=== PATIENT | male | born 1975 | race Caucasian/White ===

== ENCOUNTER 2020-11-25 09:55 | Emergency (ER) | payer OTHER ==
[~2020-11-25] VITALS: Ht 177.8 cm; Wt 113.4 kg
[~2020-11-25 09:55] MED LIST: CYCL10 PO; NAPR500EC PO; OXYACE5T PO; PARO30 PO
== END 2020-11-25 13:40 | disposition home or self-care (01) ==
LOC: ER 09:55
DX: S87.82XA Crushing injury of left lower leg, initial encounter (principal); S71.112A Laceration without foreign body, left thigh, initial encounter; S80.02XA Contusion of left knee, initial encounter; Z88.0 Allergy status to penicillin; Z79.899 Other long term (current) drug therapy; W17.89XA Other fall from one level to another, initial encounter
CPT/HCPCS: 73562-LT; 90471; 90714; 93971; 99283-25

== ENCOUNTER 2020-12-01 16:46 | Inpatient (IN) | payer OTHER ==
[~2020-12-01] VITALS: Ht 177.8 cm; Wt 120.4 kg
[2020-12-01 17:26] LABS: BASOPHILS ABSOLUTE AUTO 0.08 K/mm3 (0.00-0.23); BASOPHILS PERCENT AUTO 1 % (0-2); EOSINOPHILS PERCENT AUTO 3 % (0-6); Hematocrit 35.6 % (37.0-53.0); Hemoglobin 11.5 g/dL (13.5-17.5); IMMATURE GRAN ABSOLUTE AUTO 1.04 K/mm3 (0.00-0.10); IMMATURE GRAN PERCENT AUTO 8 % (0-1); LYMPHOCYTES ABSOLUTE AUTO 1.21 K/mm3 (0.84-5.20); LYMPHOCYTES PERCENT AUTO 9 % (21-46); MONOCYTES ABSOLUTE AUTO 1.06 K/mm3 (0.16-1.47); MONOCYTES PERCENT AUTO 8 % (4-13); Mean Corpuscular HGB 28.9 pg (26.0-34.0); Mean Corpuscular HGB Conc 32.3 g/dL (31.5-36.5); Mean Corpuscular Volume 89 fL (80-100); NEUTROPHILS ABSOLUTE AUTO 9.41 K/mm3 (1.96-9.15); NEUTROPHILS PERCENT AUTO 71 % (41-73); Platelet Count 352 K/mm3 (150-400); RDW Coefficient Variation 12.9 % (11.7-14.2); RDW Standard Deviation 42.8 fL (35.1-46.3); Red Blood Cell Count 3.98 M/mm3 (4.30-5.90)
[2020-12-01 17:57] LABS: Alanine Aminotransfer (ALT/SGP 31 U/L (12-78); Albumin, Blood 2.1 g/dL (3.4-5.0); Albumin/Globulin Ratio 0.4 (0.8-1.8); Alk Phos 119 U/L (50-136); Anion Gap 4 mmol/L (6-16); Aspartate Aminotrans (AST/SGOT 17 U/L (12-37); Bilirubin, Total 0.4 mg/dL (0.1-1.0); Blood Urea Nitrogen 15 mg/dL (8-24); Bun/Creatinine Ratio 24.2 (12.0-20.0); CO2, Blood 30 mmol/L (21-32); Calcium, Blood 9.4 mg/dL (8.5-10.1); Chloride, Blood 97 mmol/L (98-108); Creatinine, Blood 0.62 mg/dL (0.60-1.20); Glomerular Filtration Rate >60 (60-); Glucose, Blood 309 mg/dL (70-99); Sodium, Blood 131 mmol/L (136-145); Total Protein, Blood 7.1 g/dL (6.4-8.2)
[2020-12-01 17:58] LABS: C-REACTIVE PROTEIN, EXT RANGE >19.000 mg/dL (0.000-0.300)
[2020-12-01] MEDS ORDERED: BUSP10 PO ×2 (18:58→20:33)
[2020-12-01] MEDS ORDERED: FENO160 PO (18:58)
[2020-12-01] MEDS ORDERED: GLIP10ER PO (18:58)
[2020-12-01] MEDS ORDERED: CLONAZEPAM1 MG PO (18:59)
[2020-12-01] MEDS ORDERED: GLUCOPHAGE1000 M4 PO (18:59)
[2020-12-01] MEDS ORDERED: ATOR40TA PO (18:59)
[2020-12-01] MEDS ORDERED: LISI20 PO (19:00)
[2020-12-01] MEDS ORDERED: TIZA4 PO (19:00)
[2020-12-01] MEDS ORDERED: VENLAFAXINE HC225 MG PO (19:00)
[2020-12-01] MEDS ORDERED: Aspir 8181 MG PO (19:01)
[2020-12-01] MEDS ORDERED: DICL75ER PO (19:01)
[2020-12-01] MEDS ORDERED: OXYC5 PO (19:02)
[2020-12-01] MEDS ORDERED: VENL75ER PO (20:31)
[2020-12-01] MEDS ORDERED: EFFEXOR XR150 MG PO (20:31)
--- NOTE | 2020-12-01 22:19 | NUR ---
REPORT RECEIVED FROM EMMAED RN. PT TRANSPORTED TO MEDICAL FLOOR VIA GURNEY, AMBULATED SELF TO BED. AT THE BEDSIDE. VS TAKEN, ORIENTED TO ROOM/UNIT. MEDS GIVEN. CALL LIGHT, POSSESSIONS IN REACH, PT/ DENY FURTHER NEEDS AT THIS TIME. CONTINUE TO MONITOR.
--- NOTE | 2020-12-02 00:35 | NUR ---
SPOKE TO DR. EDWARDS REGARDING PT'S CONTINUED C/O LLE PAIN, AND INCREASED HR. ORDERS RECEIVED. CONTINUE TO MONITOR.
[2020-12-02 05:05] LABS: Hematocrit 35.4 % (37.0-53.0); Hemoglobin 11.3 g/dL (13.5-17.5); Mean Corpuscular HGB 28.8 pg (26.0-34.0); Mean Corpuscular HGB Conc 31.9 g/dL (31.5-36.5); Mean Corpuscular Volume 90 fL (80-100); Mean Platelet Volume 8.8 fL (9.1-12.4); NRBC ABSOLUTE 0.02 K/mm3 (0.00-0.02); NRBC Auto 0.1 /100 WBC (0.0-0.2); Platelet Count 344 K/mm3 (150-400); RDW Coefficient Variation 13.1 % (11.7-14.2); RDW Standard Deviation 43.5 fL (35.1-46.3); Red Blood Cell Count 3.92 M/mm3 (4.30-5.90); White Blood Cell Count 14.14 K/mm3 (4.00-11.30)
[2020-12-02 05:27] LABS: Alanine Aminotransfer (ALT/SGP 27 U/L (12-78); Albumin, Blood 2.4 g/dL (3.4-5.0); Albumin/Globulin Ratio 0.5 (0.8-1.8); Alk Phos 108 U/L (50-136); Anion Gap 7 mmol/L (6-16); Aspartate Aminotrans (AST/SGOT 10 U/L (12-37); Bilirubin, Total 0.5 mg/dL (0.1-1.0); Blood Urea Nitrogen 12 mg/dL (8-24); Bun/Creatinine Ratio 18.4 (12.0-20.0); CO2, Blood 27 mmol/L (21-32); Chloride, Blood 101 mmol/L (98-108); Creatinine, Blood 0.65 mg/dL (0.60-1.20); Globulin, Blood 4.6 g/dL (2.2-4.0); Glomerular Filtration Rate >60 (60-); Glucose, Blood 223 mg/dL (70-99); Potassium, Blood 3.9 mmol/L (3.5-5.5); Sodium, Blood 135 mmol/L (136-145)
[2020-12-02 05:41] LABS: BAND PERCENT MAN 6 % (0-8); BASOPHILS PERCENT MAN 0 % (0-2); EOSINOPHILS ABSOLUTE MAN 0.28 K/mm3 (0.00-0.68); EOSINOPHILS PERCENT MAN 2 % (0-6); LYMPHOCYTES ABSOLUTE MAN 1.83 K/mm3 (0.84-5.20); LYMPHOCYTES PERCENT MAN 13 % (21-46); METAMYELOCYTE ABSOLUTE MAN 0.28 K/mm3 (0.00-0.00); METAMYELOCYTE PERCENT MAN 2 % (0-0); MONOCYTES ABSOLUTE MAN 0.84 K/mm3 (0.16-1.47); MONOCYTES PERCENT MAN 6 % (4-13); NEUTROPHILS ABSOLUTE MAN 10.88 K/mm3 (1.96-9.15); SEG NEUTROPHILS PERCENT MAN 71 % (41-73); TOTAL CELLS COUNTED 100
--- NOTE | 2020-12-02 07:00 | NUR ---
SHIFT SUMMARY PT RESTING COMFORTABLY, NO ACUTE DISTRESS NOTED. VS REVIEWED, HR REMAINS TACHYCARDIC, BUT LOWER THAN PREVIOUS; AFEBRILE THIS AM. PT APPEARS TO BE FEELING SLIGHTLY BETTER THIS AM. PAIN MANAGED WITH MEDS PER EMAR. CONSULT CALLED INTO ORTHOPEDICS ANSWERING SERVICE PER ORDERS. PT AND DENY NEEDS AT THIS TIME. CALL LIGHT, POSSESSIONS IN REACH, BED IN LOW POSITION. REPORT GIVEN TO LUIS FISHER.
[2020-12-02 14:00] LABS: Influenza A, PCR Negative (NEGATIVE); Influenza B, PCR Negative (NEGATIVE); Resp Syncytial Virus, PCR Negative (NEGATIVE); SARS-Cov-2 (COVID-19) PCR, MMC Negative (NEGATIVE)
--- NOTE | 2020-12-02 14:46 | NUR ---
12/02/20 1446 PapSancho mccann PT ON SCHEDULED ANTIBIOTICS AND RECIEVED PRIOR TO ARRIVAL TO OR.
--- NOTE | 2020-12-02 17:10 | NUR ---
AFTER GIVING REPORT TO MEDICAL FLOOR RN THE PT 2ND WOUND VAC CLOTTED AND STOPPED FUNCTIONING. A CALL OUT AND TEXT MESSAGE LEFT ON MICK'S CELL PHONE. AFTER NO RESPONSE I CHANGED THE WOUND VAC DRSG PER WOUND VAC PROCEDURE PROTOCOL. 2ND WOUND VAC SET TO 120mmhg SUCTION AND FUNCTIONING WELL. PT THEN TRANSFERRED BACK TO MEDICAL FLOOR.
--- NOTE | 2020-12-02 17:56 | NUR ---
PT AOX4 AND COOPERATIVE OF CARE. PT WAS ABLE TO GO TO HAVE ABCESSES OPENED UP IN L LEG BY DR ABARCA. PT ARRIVED BACK AT 1500. WOUND VACS IN PLACE RUNNNING ONLY ONE IS SUCTIONING PROPERLY. UNABLE TO GET ONE TO SUCTION. CALL PLACED TO DR ABARCA ANSWERING SERVICE. PER SURGERY THEY ALREADY HAD TO COMPLETELY CHANGE THIS WOUND VAC DRESSING OUT DOWN STAIRS. WILL WAIT FOR RESPONSE. PT IS AOX4 AND EATING DINNER. WILL CONTINUE TO MONITOR.
--- NOTE | 2020-12-03 04:33 | NUR ---
MANUFACTURING ENGINEERING TECHNICIAN SUMMARY A/OX4, APPEARED TO SLEEP T/O NIGHT. C/O MILD PAIN IN LLE, MEDICATED PER EMAR X1. WOUND VAC REMOVED AT BEGINNING OF SHIFT, DRESSING CURRENTLY C/D/I. GLUCOSE 456, BULL DRIVER PROVIDER NOTIFIED AND OT DOSE OF HUMALOG LOW SS GIVEN. RECIEVED IV ABX T/O NIGHT. VSS. NO ACUTE CHANGES AT THIS TIME. BED IN LOWEST POSITION WITH CALL LIGHT IN REACH. WILL CONTINUE TO MONITOR AND REPORT TO ONCOMING RN.
[2020-12-03 06:05] LABS: Hematocrit 23.2 % (37.0-53.0); Hemoglobin 7.5 g/dL (13.5-17.5); Mean Corpuscular HGB 29.1 pg (26.0-34.0); Mean Corpuscular HGB Conc 32.3 g/dL (31.5-36.5); Mean Corpuscular Volume 90 fL (80-100); Platelet Count 344 K/mm3 (150-400); RDW Coefficient Variation 13.1 % (11.7-14.2); RDW Standard Deviation 42.6 fL (35.1-46.3); Red Blood Cell Count 2.58 M/mm3 (4.30-5.90); White Blood Cell Count 17.14 K/mm3 (4.00-11.30)
[2020-12-03 06:24] LABS: Anion Gap 9 mmol/L (6-16); Blood Urea Nitrogen 37 mg/dL (8-24); Bun/Creatinine Ratio 16.3 (12.0-20.0); CO2, Blood 23 mmol/L (21-32); Calcium, Blood 7.9 mg/dL (8.5-10.1); Chloride, Blood 98 mmol/L (98-108); Creatinine, Blood 2.27 mg/dL (0.60-1.20); Glomerular Filtration Rate 33 (60-); Glucose, Blood 344 mg/dL (70-99); Potassium, Blood 4.6 mmol/L (3.5-5.5); Sodium, Blood 130 mmol/L (136-145)
[2020-12-03 06:26] LABS: Vancomycin, Trough 37.3 ug/mL (5.0-10.0)
[2020-12-03 06:30] LABS: BAND PERCENT MAN 7 % (0-8); BASOPHILS PERCENT MAN 0 % (0-2); EOSINOPHILS PERCENT MAN 0 % (0-6); LYMPHOCYTES ABSOLUTE MAN 1.71 K/mm3 (0.84-5.20); LYMPHOCYTES PERCENT MAN 10 % (21-46); METAMYELOCYTE ABSOLUTE MAN 0.68 K/mm3 (0.00-0.00); METAMYELOCYTE PERCENT MAN 4 % (0-0); MONOCYTES ABSOLUTE MAN 1.19 K/mm3 (0.16-1.47); MONOCYTES PERCENT MAN 7 % (4-13); MYELOCYTE ABSOLUTE MAN 0.17 K/mm3 (0.00-0.00); MYELOCYTE PERCENT MAN 1 % (0-0); NEUTROPHILS ABSOLUTE MAN 13.36 K/mm3 (1.96-9.15); SEG NEUTROPHILS PERCENT MAN 71 % (41-73); TOTAL CELLS COUNTED 100
--- NOTE | 2020-12-03 06:45 | NUR ---
PHYSICIAN CONTACT CONCRETE BUCKET UNLOADER PROVIDER NOTIFIED OF HGB 7.5 DOWN FROM 11.3 YESTERDAY, ADVISED TO CONTINUE TO MONITOR ATH THIS TIME. ALSO NOTIFIED OF CRITICAL HIGH VANCO 37.3, NO NEW ORDERS AT THIS TIME. PHARMACY NOTIFIED WELL.
--- NOTE | 2020-12-03 06:51 | NUR ---
PHYSICIAN NOTIFY ATTEMPTED TO NOTIFY SPRINKLER FITTER APPRENTICE PROVIDER OF ACUTE DECREASE IN KIDNEY FUNCTION. GFR OF 33, CREATININE 2.27. UNABLE TO CONTACT PROVIDER AT THIS TIME, WILL NOTIFY ONCOMING NURSE OF CURRENT LABS
--- NOTE | 2020-12-03 07:50 | NUR ---
pt sleeping wakes to verbal stimuli pt denies dizziness reviewed pt labs and discussed with pt new order pt bolus 500 ml ns to follow 200 ml hr times 1.[address] arciniega no shadow noted to pt lower leg dec redness noted and swelling pt rates pain 2/10 declines pain meds
--- NOTE | 2020-12-03 09:30 | NUR ---
dr arciniega by to see pt
--- NOTE | 2020-12-03 12:15 | NUR ---
meds given as sched pt eatig lunch
--- NOTE | 2020-12-03 12:41 | NUR ---
dr arciniega called updated her on pt's bladder scan pt voided 600 ml earlier pt had 1 ml post void
[2020-12-03 12:51] LABS: Hemoglobin 7.5 g/dL (13.5-17.5); Mean Corpuscular HGB 29.6 pg (26.0-34.0); Mean Corpuscular HGB Conc 32.6 g/dL (31.5-36.5); Mean Corpuscular Volume 91 fL (80-100); Platelet Count 364 K/mm3 (150-400); RDW Standard Deviation 43.7 fL (35.1-46.3); Red Blood Cell Count 2.53 M/mm3 (4.30-5.90); White Blood Cell Count 16.18 K/mm3 (4.00-11.30)
[2020-12-03 13:09] LABS: Albumin, Blood 1.8 g/dL (3.4-5.0); Anion Gap 9 mmol/L (6-16); Blood Urea Nitrogen 41 mg/dL (8-24); Bun/Creatinine Ratio 14.5 (12.0-20.0); CO2, Blood 24 mmol/L (21-32); Calcium, Blood 8.1 mg/dL (8.5-10.1); Chloride, Blood 98 mmol/L (98-108); Creatinine, Blood 2.82 mg/dL (0.60-1.20); Glomerular Filtration Rate 26 (60-); Glucose, Blood 333 mg/dL (70-99); Phosphorus, Blood 4.5 mg/dL (2.5-4.9); Potassium, Blood 4.1 mmol/L (3.5-5.5); Sodium, Blood 131 mmol/L (136-145)
[2020-12-03 13:14] LABS: BAND PERCENT MAN 6 % (0-8); BASOPHILS PERCENT MAN 0 % (0-2); EOSINOPHILS ABSOLUTE MAN 0.48 K/mm3 (0.00-0.68); EOSINOPHILS PERCENT MAN 3 % (0-6); LYMPHOCYTES ABSOLUTE MAN 1.94 K/mm3 (0.84-5.20); LYMPHOCYTES PERCENT MAN 12 % (21-46); MONOCYTES ABSOLUTE MAN 1.45 K/mm3 (0.16-1.47); MONOCYTES PERCENT MAN 9 % (4-13); MYELOCYTE ABSOLUTE MAN 0.16 K/mm3 (0.00-0.00); MYELOCYTE PERCENT MAN 1 % (0-0); NEUTROPHILS ABSOLUTE MAN 12.13 K/mm3 (1.96-9.15); SEG NEUTROPHILS PERCENT MAN 69 % (41-73); TOTAL CELLS COUNTED 100
--- NOTE | 2020-12-03 14:06 | NUR ---
thiago by to see pt dressing reinforced
--- NOTE | 2020-12-03 15:52 | NUR ---
pt visiting with
--- NOTE | 2020-12-03 16:42 | NUR ---
strict urine out put ua to be sent to lab
--- NOTE | 2020-12-03 16:47 | NUR ---
pt getting 1 liter ns bolus
--- NOTE | 2020-12-03 17:20 | NUR ---
dr agudelo by to see pt
--- NOTE | 2020-12-03 17:38 | NUR ---
PT EATING DINNER PT'S S/O AT BEDSIDE MEDS GIVEN SCHED
[2020-12-03 18:20] LABS: Source, Urine Clean Catch
[2020-12-03 18:22] LABS: Appearance, Urine Clear (Clear); Bilirubin, Urine Neg (Neg); Blood, Urine Neg (Neg); Color, Urine Yellow (P-Yellow); Glucose Qualitative, Urine 2+ (Neg); Ketones, Urine Neg (Neg); Leukocyte Esterase, Urine Neg (Neg); Nitrite, Urine Neg (Neg); Protein, Urine Neg (Neg); Specific Gravity, Urine 1.005 (1.003-1.022); Urobilinogen, Urine NORM (Normal); pH, Urine 6.5 (5.0-8.0)
[2020-12-03 20:32] LABS: Bun/Creatinine Ratio 13.5 (12.0-20.0); Calcium, Blood 8.4 mg/dL (8.5-10.1); Creatinine, Blood 3.55 mg/dL (0.60-1.20); Potassium, Blood 4.4 mmol/L (3.5-5.5)
--- NOTE | 2020-12-04 04:32 | NUR ---
SHIFT SUMMARY- PT. A&O, PLEASANT AND COOPERATIVE WITH CARE. S/P I&D, PO#2. C/O PAIN TO LLE 03/14. MEDICATED X2 PER EMAR WITH GOOD EFFECT. DSG AND RENA WRAP BANDAGE TO L LEG C/D/I. ALSO HEMOVAC IN PLACE, NO DRAINAGE NOTED THIS SHIFT. PT. ASLEEP MOST OF THE NIGHT, NO APPARENT DISTRESS NOTED. VSS. NPO FOR REPEAT I&D TODAY. CALL LIGHT WITHIN REACH AND SIDE RAILS UPX2. WILL CONT TO MONITOR.
[2020-12-04 05:37] LABS: BASOPHILS ABSOLUTE AUTO 0.03 K/mm3 (0.00-0.23); BASOPHILS PERCENT AUTO 0 % (0-2); EOSINOPHILS ABSOLUTE AUTO 0.33 K/mm3 (0.00-0.68); EOSINOPHILS PERCENT AUTO 3 % (0-6); Hematocrit 20.3 % (37.0-53.0); Hemoglobin 6.6 g/dL (13.5-17.5); IMMATURE GRAN ABSOLUTE AUTO 1.16 K/mm3 (0.00-0.10); IMMATURE GRAN PERCENT AUTO 9 % (0-1); LYMPHOCYTES ABSOLUTE AUTO 1.53 K/mm3 (0.84-5.20); LYMPHOCYTES PERCENT AUTO 12 % (21-46); MONOCYTES ABSOLUTE AUTO 0.78 K/mm3 (0.16-1.47); MONOCYTES PERCENT AUTO 6 % (4-13); Mean Corpuscular HGB 29.3 pg (26.0-34.0); Mean Corpuscular HGB Conc 32.5 g/dL (31.5-36.5); Mean Corpuscular Volume 90 fL (80-100); NEUTROPHILS ABSOLUTE AUTO 8.69 K/mm3 (1.96-9.15); NEUTROPHILS PERCENT AUTO 70 % (41-73); Platelet Count 353 K/mm3 (150-400); RDW Coefficient Variation 13.1 % (11.7-14.2); RDW Standard Deviation 42.9 fL (35.1-46.3); Red Blood Cell Count 2.25 M/mm3 (4.30-5.90); White Blood Cell Count 12.52 K/mm3 (4.00-11.30)
[2020-12-04 06:00] LABS: BAND PERCENT MAN 7 % (0-8); BASOPHILS PERCENT MAN 0 % (0-2); EOSINOPHILS ABSOLUTE MAN 0.37 K/mm3 (0.00-0.68); EOSINOPHILS PERCENT MAN 3 % (0-6); LYMPHOCYTES ABSOLUTE MAN 1.37 K/mm3 (0.84-5.20); LYMPHOCYTES PERCENT MAN 11 % (21-46); METAMYELOCYTE ABSOLUTE MAN 0.12 K/mm3 (0.00-0.00); METAMYELOCYTE PERCENT MAN 1 % (0-0); MONOCYTES ABSOLUTE MAN 0.62 K/mm3 (0.16-1.47); MONOCYTES PERCENT MAN 5 % (4-13); MYELOCYTE PERCENT MAN 4 % (0-0); NEUTROPHILS ABSOLUTE MAN 9.51 K/mm3 (1.96-9.15); SEG NEUTROPHILS PERCENT MAN 69 % (41-73); TOTAL CELLS COUNTED 100
[2020-12-04 06:09] LABS: Anion Gap 11 mmol/L (6-16); Blood Urea Nitrogen 55 mg/dL (8-24); CO2, Blood 20 mmol/L (21-32); Calcium, Blood 8.5 mg/dL (8.5-10.1); Chloride, Blood 104 mmol/L (98-108); Creatinine, Blood 4.23 mg/dL (0.60-1.20); Glomerular Filtration Rate 16 (60-); Glucose, Blood 252 mg/dL (70-99); Sodium, Blood 135 mmol/L (136-145); Vancomycin, Random 30.8 ug/mL
[2020-12-04 11:50] LABS: Percent Saturation 22.6 % (20.0-50.0)
[2020-12-04 12:01] LABS: Source, Urine Voided
[2020-12-04 12:25] LABS: Bacteria Rare /hpf; Squamous Epithelial Cells Rare /hpf (Few); White Blood Cells, Urine 0-2 /hpf (0-5)
[2020-12-04 13:59] LABS: Hematocrit 22.6 % (37.0-53.0); Hemoglobin 7.3 g/dL (13.5-17.5); Mean Corpuscular HGB 29.7 pg (26.0-34.0); Mean Corpuscular HGB Conc 32.3 g/dL (31.5-36.5); Mean Corpuscular Volume 92 fL (80-100); Mean Platelet Volume 8.7 fL (9.1-12.4); Platelet Count 353 K/mm3 (150-400); RDW Coefficient Variation 13.1 % (11.7-14.2); RDW Standard Deviation 43.7 fL (35.1-46.3); Red Blood Cell Count 2.46 M/mm3 (4.30-5.90); White Blood Cell Count 12.87 K/mm3 (4.00-11.30)
[2020-12-04 14:15] LABS: Bun/Creatinine Ratio 13.1 (12.0-20.0); Calcium, Blood 8.6 mg/dL (8.5-10.1); Creatinine, Blood 4.74 mg/dL (0.60-1.20)
[2020-12-04 14:31] LABS: BAND PERCENT MAN 3 % (0-8); BASOPHILS ABSOLUTE MAN 0.12 K/mm3 (0.00-0.23); BASOPHILS PERCENT MAN 1 % (0-2); EOSINOPHILS ABSOLUTE MAN 0.77 K/mm3 (0.00-0.68); EOSINOPHILS PERCENT MAN 6 % (0-6); LYMPHOCYTES ABSOLUTE MAN 0.77 K/mm3 (0.84-5.20); LYMPHOCYTES PERCENT MAN 6 % (21-46); METAMYELOCYTE ABSOLUTE MAN 0.51 K/mm3 (0.00-0.00); METAMYELOCYTE PERCENT MAN 4 % (0-0); MONOCYTES ABSOLUTE MAN 0.12 K/mm3 (0.16-1.47); MONOCYTES PERCENT MAN 1 % (4-13); NEUTROPHILS ABSOLUTE MAN 10.55 K/mm3 (1.96-9.15); SEG NEUTROPHILS PERCENT MAN 79 % (41-73); TOTAL CELLS COUNTED 100
--- NOTE | 2020-12-04 16:11 | NUR ---
LEFT LEG WITH RENA WRAP DRSG WITH DRAIN INTACTSCANT RED DRNG PRESENT MOVES LEG WIGGLES TOES PPP CAP REFILL WNL
[2020-12-04 17:37] LABS: WBC Count, Synovial Fluid 631 /mm3 (0-180)
[2020-12-04 18:16] LABS: RBC Count, Synovial Fluid 57 /mm3 (0-0)
[2020-12-04 18:23] LABS: Appearance, Synovial Fluid Clear (Clear); Color, Synovial Fluid Yellow (None-P Yel); Lymphs, Synovial Fluid 2 % (0-15); Monocytes/Macrophages, Synovia 17 % (0-65); Neutrophils, Synovial Fluid 81 % (0-24)
--- NOTE | 2020-12-04 19:25 | NUR ---
SHIFT SUMMARY PT A/O X4; PLEASANT AND COOPERATIVE WITH CARE. PT HAD I&D PERFORMED TODAY. HEMOVAC IS NOW GONE AND PT HAS A WOUND VAC WITH A SPLIT TO COVERED BOTH SIDES. WOUND VAC IS DRAINING WELL. PT RECEIVED ONE UNIT OF BLOOD TODAY; TOLERATED WELL. MADE IT KNOWN THAT THE PT HAS BEEN HAVING INCREASED FEELINGS OF DEPRESSION AND WOULD LIKE HIS ANTIDEPRESSANTS ADJUSTED. MADE THIS REQUEST KNOWN TO PHYSICIAN. SI ASSESSMENT PERFORMED AND NEGATIVE. VSS; REPORT GIVEN TO AUTO BODY STRAIGHTENER RN.
[2020-12-04 21:07] LABS: Hematocrit 22.3 % (37.0-53.0); Hemoglobin 7.2 g/dL (13.5-17.5); Mean Corpuscular HGB 29.9 pg (26.0-34.0); Mean Corpuscular HGB Conc 32.3 g/dL (31.5-36.5); Mean Corpuscular Volume 93 fL (80-100); Mean Platelet Volume 8.8 fL (9.1-12.4); Platelet Count 377 K/mm3 (150-400); RDW Coefficient Variation 13.2 % (11.7-14.2); RDW Standard Deviation 44.3 fL (35.1-46.3); Red Blood Cell Count 2.41 M/mm3 (4.30-5.90); White Blood Cell Count 13.07 K/mm3 (4.00-11.30)
[2020-12-04 21:27] LABS: BAND PERCENT MAN 6 % (0-8); BASOPHILS PERCENT MAN 0 % (0-2); EOSINOPHILS PERCENT MAN 0 % (0-6); LYMPHOCYTES PERCENT MAN 10 % (21-46); METAMYELOCYTE ABSOLUTE MAN 0.26 K/mm3 (0.00-0.00); METAMYELOCYTE PERCENT MAN 2 % (0-0); MONOCYTES ABSOLUTE MAN 0.91 K/mm3 (0.16-1.47); MONOCYTES PERCENT MAN 7 % (4-13); MYELOCYTE ABSOLUTE MAN 0.13 K/mm3 (0.00-0.00); MYELOCYTE PERCENT MAN 1 % (0-0); NEUTROPHILS ABSOLUTE MAN 10.45 K/mm3 (1.96-9.15); SEG NEUTROPHILS PERCENT MAN 74 % (41-73); TOTAL CELLS COUNTED 100
--- NOTE | 2020-12-04 23:25 | NUR ---
PT. ARRIVED TO FLOOR FROM SURGERY @191 VIA STRETCHER. A&O, AWAKE. C/O PAIN TO L LEG 05/14. PT. TRANSFERRED ONTO BED BY NURSING STAFF AND REPOSITIONED FOR COMFORT. MEDICATED PER EMAR WITH MINIMAL EFFECT. PT. ADVANCED TO ADA DIET. HAD JELLO AND FLUIDS, TOLERATING WELL.
--- NOTE | 2020-12-05 04:29 | NUR ---
SHIFT SUMMARY- PT. S/P REPEAT I&D OF THE L LEG, WOUND VAC IN PLACE WITH MODERATE AMOUNT OF SANGUINEOUS DRAINAGE. PT. W/COMPLAINTS OF PAIN TO L LEG T/O THE NIGHT, MEDICATED FOR PAIN MULTIPLE TIMES THIS SHIFT. PT. REPORTS GOOD RELIEF AT TIMES, ALSO STATED HAS ON/OFF CRAMPING TO THE LLE. RESTED QUIETLY DURING THE NIGHT, NO APPARENT DISTRESS NOTED. ADVANCED DIET TO ADA PER HOSPITALIST DR. NOE, TOLERATING WELL. HAS GOOD APPETITE AND VOIDING SEVERAL TIMES T/O THE SHIFT. AT CHANGE OF SHIFT IT WAS REPORTED TO THIS NURSE BY DAY RN THAT THERE WAS CONCERN RE PT. HX OF DEPRESSION AND COMMENT MADE BY PT. TO SPOUSE DURING THE DAY. SI SCREENING DONE AND NEGATIVE. PT. DENIES SI. VSS. CALL LIGHT WITHIN REACH AND SIDE RAILS UPX2. WILL CONT TO MONITOR.
[2020-12-05 05:26] LABS: Hemoglobin 7.1 g/dL (13.5-17.5); Mean Corpuscular HGB 29.8 pg (26.0-34.0); Mean Corpuscular HGB Conc 32.3 g/dL (31.5-36.5); Mean Corpuscular Volume 92 fL (80-100); Mean Platelet Volume 8.9 fL (9.1-12.4); Platelet Count 393 K/mm3 (150-400); RDW Coefficient Variation 13.2 % (11.7-14.2); RDW Standard Deviation 44.3 fL (35.1-46.3); Red Blood Cell Count 2.38 M/mm3 (4.30-5.90)
[2020-12-05 05:49] LABS: BAND PERCENT MAN 6 % (0-8); BASOPHILS PERCENT MAN 0 % (0-2); EOSINOPHILS ABSOLUTE MAN 0.36 K/mm3 (0.00-0.68); EOSINOPHILS PERCENT MAN 3 % (0-6); LYMPHOCYTES ABSOLUTE MAN 0.85 K/mm3 (0.84-5.20); LYMPHOCYTES PERCENT MAN 7 % (21-46); MONOCYTES ABSOLUTE MAN 0.73 K/mm3 (0.16-1.47); MONOCYTES PERCENT MAN 6 % (4-13); MYELOCYTE ABSOLUTE MAN 0.24 K/mm3 (0.00-0.00); MYELOCYTE PERCENT MAN 2 % (0-0); SEG NEUTROPHILS PERCENT MAN 76 % (41-73); TOTAL CELLS COUNTED 100
[2020-12-05 05:53] LABS: Albumin, Blood 1.8 g/dL (3.4-5.0); Albumin/Globulin Ratio 0.4 (0.8-1.8); Bilirubin, Total 0.6 mg/dL (0.1-1.0); Bun/Creatinine Ratio 11.5 (12.0-20.0); Calcium, Blood 8.6 mg/dL (8.5-10.1); Creatinine, Blood 5.21 mg/dL (0.60-1.20); Globulin, Blood 4.2 g/dL (2.2-4.0); Potassium, Blood 5.1 mmol/L (3.5-5.5)
[2020-12-05 09:56] LABS: Hematocrit 21.7 % (37.0-53.0)
[2020-12-05 13:53] LABS: Hematocrit 22.5 % (37.0-53.0); Hemoglobin 7.1 g/dL (13.5-17.5)
[2020-12-05 14:15] LABS: Bun/Creatinine Ratio 11.3 (12.0-20.0); Calcium, Blood 8.5 mg/dL (8.5-10.1); Creatinine, Blood 5.31 mg/dL (0.60-1.20); Potassium, Blood 4.5 mmol/L (3.5-5.5)
--- NOTE | 2020-12-05 18:16 | NUR ---
PATIENT A/OX4, UP WITH SBA TO RESTROOM. WOUND VAC TO L LEG WNL. DR EASON AT BEDSIDE TODAY AND PLANS TO CHANGE WOUND VAC DRESSING TOMORROW. VSS, ON RA. PAIN CONTROLLED WITH OXYCODONE AND DILAUDID. ST ON TELE, DENIES ANY CP OR SOB. TOLERATING ADA DIET. ACHS BLOOD SUGARS. CT ORDERED OF L LEG TOMORROW. COOPERATIVE WITH CARE, ABLE TO MAKE NEEDS KNOWN.
--- NOTE | 2020-12-06 04:32 | NUR ---
SHIFT SUMMARY- NO ACUTE EVENTS OVERNIGHT. PT. ASLEEP T/O THE NIGHT, NO APPARENT DISTRESS NOTED. MEDICATED 1X FOR PAIN TO L LEG, APPEARED TO HAVE GOOD EFFECT. WOUND VAC TO L LEG IN PLACE. PT. UP TO BATHROOM W/WALKER AND SBA, TOLERATED WELL. DENIED ANY OTHER NEEDS DURING THE NIGHT, VSS. CALL LIGHT WITHIN REACH AND SIDE RAILS UPX2. WILL CONT TO MONITOR.
[2020-12-06 05:14] LABS: BASOPHILS ABSOLUTE AUTO 0.03 K/mm3 (0.00-0.23); BASOPHILS PERCENT AUTO 0 % (0-2); EOSINOPHILS PERCENT AUTO 3 % (0-6); Hematocrit 21.8 % (37.0-53.0); IMMATURE GRAN ABSOLUTE AUTO 0.55 K/mm3 (0.00-0.10); IMMATURE GRAN PERCENT AUTO 5 % (0-1); LYMPHOCYTES ABSOLUTE AUTO 1.27 K/mm3 (0.84-5.20); LYMPHOCYTES PERCENT AUTO 12 % (21-46); MONOCYTES ABSOLUTE AUTO 0.78 K/mm3 (0.16-1.47); MONOCYTES PERCENT AUTO 7 % (4-13); Mean Corpuscular HGB 29.3 pg (26.0-34.0); Mean Corpuscular HGB Conc 32.1 g/dL (31.5-36.5); Mean Corpuscular Volume 91 fL (80-100); Mean Platelet Volume 8.7 fL (9.1-12.4); NEUTROPHILS ABSOLUTE AUTO 7.77 K/mm3 (1.96-9.15); NEUTROPHILS PERCENT AUTO 73 % (41-73); Platelet Count 468 K/mm3 (150-400); RDW Coefficient Variation 12.9 % (11.7-14.2); RDW Standard Deviation 42.9 fL (35.1-46.3); Red Blood Cell Count 2.39 M/mm3 (4.30-5.90)
[2020-12-06 05:44] LABS: Bun/Creatinine Ratio 11.8 (12.0-20.0); Calcium, Blood 8.8 mg/dL (8.5-10.1); Creatinine, Blood 5.36 mg/dL (0.60-1.20); Potassium, Blood 4.7 mmol/L (3.5-5.5)
[2020-12-06 13:08] LABS: BASOPHILS ABSOLUTE AUTO 0.04 K/mm3 (0.00-0.23); BASOPHILS PERCENT AUTO 0 % (0-2); EOSINOPHILS ABSOLUTE AUTO 0.34 K/mm3 (0.00-0.68); EOSINOPHILS PERCENT AUTO 3 % (0-6); Hematocrit 22.6 % (37.0-53.0); Hemoglobin 7.4 g/dL (13.5-17.5); IMMATURE GRAN ABSOLUTE AUTO 0.56 K/mm3 (0.00-0.10); IMMATURE GRAN PERCENT AUTO 5 % (0-1); LYMPHOCYTES ABSOLUTE AUTO 1.51 K/mm3 (0.84-5.20); LYMPHOCYTES PERCENT AUTO 13 % (21-46); MONOCYTES ABSOLUTE AUTO 0.87 K/mm3 (0.16-1.47); MONOCYTES PERCENT AUTO 7 % (4-13); Mean Corpuscular HGB Conc 32.7 g/dL (31.5-36.5); Mean Corpuscular Volume 92 fL (80-100); Mean Platelet Volume 8.7 fL (9.1-12.4); NEUTROPHILS ABSOLUTE AUTO 8.68 K/mm3 (1.96-9.15); NEUTROPHILS PERCENT AUTO 72 % (41-73); Platelet Count 450 K/mm3 (150-400); RDW Coefficient Variation 13.3 % (11.7-14.2); Red Blood Cell Count 2.47 M/mm3 (4.30-5.90)
[2020-12-06 13:31] LABS: Bun/Creatinine Ratio 11.5 (12.0-20.0); Calcium, Blood 8.9 mg/dL (8.5-10.1); Creatinine, Blood 5.22 mg/dL (0.60-1.20); Potassium, Blood 4.4 mmol/L (3.5-5.5)
--- NOTE | 2020-12-06 18:48 | NUR ---
PT RESTING IN BED AFTER DINNER AND MEDICATION ADMIN. PT REMAINS A STAND BY ASSIST TO MONITOR LINES WHEN UP FOR THE RESTROOM. PT HAD C/O PAIN RANGING FROM 4-7/10 THAT HAS BEEN MANAGED WELL WITH MEDICATION PER EMAR. PT MAKES NO COMPLAINTS AT THIS MOMES, IS ALERT AND ORIENTED AND CALL LIGHT WITHIN REACH. STAFF WILL CONT. TO MONITOR FO CHANGES.
--- NOTE | 2020-12-06 20:20 | NUR ---
12/06/201929 DR BENTON HERE AND CHANGED DRESSINGS AND WOUND VAC TUBINGS. RECONNECTED TO WOUND VAC SUCTION. PT MEDICATED WITH EXTRA DOSE OF PAIN MED IV PER MD ORDER. STATED HE WOULD SEE HIM TOMORROW.
[2020-12-07 05:55] LABS: Percent Saturation 12.3 % (20.0-50.0)
[2020-12-07 07:09] LABS: BASOPHILS ABSOLUTE AUTO 0.04 K/mm3 (0.00-0.23); BASOPHILS PERCENT AUTO 0 % (0-2); EOSINOPHILS PERCENT AUTO 3 % (0-6); Hematocrit 23.9 % (37.0-53.0); Hemoglobin 7.6 g/dL (13.5-17.5); IMMATURE GRAN PERCENT AUTO 4 % (0-1); LYMPHOCYTES ABSOLUTE AUTO 1.31 K/mm3 (0.84-5.20); LYMPHOCYTES PERCENT AUTO 13 % (21-46); MONOCYTES ABSOLUTE AUTO 0.83 K/mm3 (0.16-1.47); MONOCYTES PERCENT AUTO 8 % (4-13); Mean Corpuscular HGB 29.7 pg (26.0-34.0); Mean Corpuscular HGB Conc 31.8 g/dL (31.5-36.5); Mean Corpuscular Volume 93 fL (80-100); Mean Platelet Volume 8.9 fL (9.1-12.4); NEUTROPHILS ABSOLUTE AUTO 7.42 K/mm3 (1.96-9.15); NEUTROPHILS PERCENT AUTO 72 % (41-73); Platelet Count 573 K/mm3 (150-400); RDW Coefficient Variation 13.2 % (11.7-14.2); Red Blood Cell Count 2.56 M/mm3 (4.30-5.90)
[2020-12-07 07:19] LABS: Bun/Creatinine Ratio 11.9 (12.0-20.0); Calcium, Blood 9.4 mg/dL (8.5-10.1); Creatinine, Blood 4.89 mg/dL (0.60-1.20); Potassium, Blood 4.8 mmol/L (3.5-5.5)
--- NOTE | 2020-12-07 07:54 | NUR ---
12/07/20 0510 MEDICATED FOR LEFT LEG DISCOMFORT PER JAN. WOUND VAC INTACT TO LEFT LEG. VITALS AND HEART MONITOR STABLE. MOVES WELL IN BED. VOIDING QS.
--- NOTE | 2020-12-07 09:06 | NUR ---
12/07/20 0906 Sonam Ca VERIFICATIONS: EDIT CHART.
--- NOTE | 2020-12-07 18:24 | NUR ---
SHIFT SUMMARY SARAH COMPLAINED OF PAIN THIS SHIFT AND RECEIVED OXY AND NORCO WHICH WORKED WELL. CBGS WERE COVERED WITH INSULIN. VISITED. INDEP TO BR, USING URINAL AT BEDSIDE. WOUND VAC AND DRESSING INTACT AND TO SUCTION. TOOK MEDS PRESCRIBED, CALL LIGHT IN REACH, WCTM
[2020-12-08 05:36] LABS: BASOPHILS ABSOLUTE AUTO 0.04 K/mm3 (0.00-0.23); BASOPHILS PERCENT AUTO 0 % (0-2); EOSINOPHILS ABSOLUTE AUTO 0.27 K/mm3 (0.00-0.68); EOSINOPHILS PERCENT AUTO 3 % (0-6); Hematocrit 24.4 % (37.0-53.0); Hemoglobin 7.7 g/dL (13.5-17.5); IMMATURE GRAN ABSOLUTE AUTO 0.21 K/mm3 (0.00-0.10); IMMATURE GRAN PERCENT AUTO 2 % (0-1); LYMPHOCYTES ABSOLUTE AUTO 1.41 K/mm3 (0.84-5.20); LYMPHOCYTES PERCENT AUTO 15 % (21-46); MONOCYTES ABSOLUTE AUTO 0.81 K/mm3 (0.16-1.47); MONOCYTES PERCENT AUTO 9 % (4-13); Mean Corpuscular HGB 29.2 pg (26.0-34.0); Mean Corpuscular HGB Conc 31.6 g/dL (31.5-36.5); Mean Corpuscular Volume 92 fL (80-100); Mean Platelet Volume 8.5 fL (9.1-12.4); NEUTROPHILS ABSOLUTE AUTO 6.45 K/mm3 (1.96-9.15); NEUTROPHILS PERCENT AUTO 70 % (41-73); Platelet Count 655 K/mm3 (150-400); RDW Coefficient Variation 12.9 % (11.7-14.2); RDW Standard Deviation 43.8 fL (35.1-46.3); Red Blood Cell Count 2.64 M/mm3 (4.30-5.90); White Blood Cell Count 9.19 K/mm3 (4.00-11.30)
[2020-12-08 06:21] LABS: Bun/Creatinine Ratio 13.7 (12.0-20.0); Calcium, Blood 10.1 mg/dL (8.5-10.1); Creatinine, Blood 4.15 mg/dL (0.60-1.20); Potassium, Blood 4.8 mmol/L (3.5-5.5)
--- NOTE | 2020-12-08 07:29 | NUR ---
12/08/20 0615 PT SLEEPING WELL. MEDICATED REGULARLY FOR LT. LEG DISCOMFORT. WOUND VAC INTACT WITH RED DRAINAGE. DECLINED LAXATIVES HE HAS BEEN HAVING LOOSE BMS. VOIDING WELL. EDEMA STILL PRESENT IN BLE.
--- NOTE | 2020-12-08 12:08 | NUR ---
PICC LINE: SPOKE WITH RAOUL JOHNSON AND DISCUSSED PATIENT'S ABILITY TO MANAGE IV ANTIBIOTICS AT HOME. REPORTED ON PATIENT BEING ALERT AND ORIENTED X4, COOPERATION AND ABILITY TO FOLLOW DIRECTIONS AT THE HOSPITAL, AND THE FACT THAT HE HAS A SUPPORTIVE THAT HE LIVES WITH. DISCUSSED NEED FOR EXTENDED DWELL IV LINE. NOTIFIED DR. LEOS, RESIDENT MD OF THIS NEED. RECEIVED NEW ORDER FOR PICC LINE. WOOLEN SUITING SHRINKER'S NOTIFIED.
--- NOTE | 2020-12-08 18:33 | NUR ---
END OF SHIFT SUMMARY: PATIENT REPORTED LOW PAIN AT REST AND INCREASED PAIN (UP TO A 5/10) WITH AMBULATION. PATIENT DENIES OTHER DISCOMFORT OR PAIN. PATIENT REPORTED CONCERNS ABOUT DISCHARGE PLAN. DISCUSSED WITH ENGINEERING PROJECT MANAGER RAOUL JOHNSON AND HOSPITALIST DR. MAURER AND RESIDENT DR. LEOS. PATIENT IS AGREEABLE TO DISCHARGE WITH EXTENDED DWELL CATHETER. PATIENT REPORTS PREFERENCE OF GOING HOME OVER DISCHARGING TO A SNF, BUT HE AND HIS WERE STILL OPEN TO THE IDEA OF DISCHARGE TO SNF. WOUND VAC DRESSING CHANGED. PICTURES TAKEN AND PLACED IN THE CHART. DR. EASON ROUNDED ON THE PATIENT AND DISCUSSED DISCHARGE AND FOLLOW UP WITH THE PATIENT AND HIS . PATIENT HAS BEEN ABLE TO EAT THE MAJORITY OF HIS MEALS. DENIES NAUSEA OR ABD DISCOMFORT. PATIENT WAS CONCERNED THAT HE MAY NEED TO DISCHARGE WITH INSULIN. PER DR. MAURER, IT IS LIKELY THAT HE WILL NEED TO. DISCUSSED THIS POSSIBILITY WITH THE PATIENT.
--- NOTE | 2020-12-09 04:23 | NUR ---
SHIFT SUMMARY: VSS. AFEB. AAOX4. COMMUNICATES NEEDS. MED FOR LLE PAIN X 1 EFFECTIVELY. WOUND VAC TO L LATERAL THIGH AND ENGLISH W/DRESSING INTACT AND SUCTION PER ORDERS. SMALL AMT OF SERO-SANG DRAINAGE COLLECTING IN WOUND VAC. +2 PITTING EDEMA TO LLE FROM TOES TO UPPER THIGH. ERYTHEMA VISIBLE TO L ENGLISH. DENIES N/T. IV ABT INFUSED PER ORDERS. NO ACUTE CHANGES OVERNIGHT. WCTM.
[2020-12-09 05:43] LABS: BASOPHILS ABSOLUTE AUTO 0.05 K/mm3 (0.00-0.23); BASOPHILS PERCENT AUTO 1 % (0-2); EOSINOPHILS ABSOLUTE AUTO 0.35 K/mm3 (0.00-0.68); EOSINOPHILS PERCENT AUTO 4 % (0-6); Hematocrit 23.9 % (37.0-53.0); Hemoglobin 7.8 g/dL (13.5-17.5); IMMATURE GRAN ABSOLUTE AUTO 0.13 K/mm3 (0.00-0.10); IMMATURE GRAN PERCENT AUTO 2 % (0-1); LYMPHOCYTES ABSOLUTE AUTO 1.43 K/mm3 (0.84-5.20); LYMPHOCYTES PERCENT AUTO 18 % (21-46); MONOCYTES ABSOLUTE AUTO 0.82 K/mm3 (0.16-1.47); MONOCYTES PERCENT AUTO 10 % (4-13); Mean Corpuscular HGB Conc 32.6 g/dL (31.5-36.5); Mean Corpuscular Volume 92 fL (80-100); Mean Platelet Volume 8.3 fL (9.1-12.4); NEUTROPHILS ABSOLUTE AUTO 5.29 K/mm3 (1.96-9.15); NEUTROPHILS PERCENT AUTO 66 % (41-73); Platelet Count 766 K/mm3 (150-400); RDW Coefficient Variation 12.6 % (11.7-14.2); RDW Standard Deviation 42.2 fL (35.1-46.3); White Blood Cell Count 8.07 K/mm3 (4.00-11.30)
[2020-12-09 06:14] LABS: Bun/Creatinine Ratio 14.6 (12.0-20.0); Calcium, Blood 9.9 mg/dL (8.5-10.1); Creatinine, Blood 3.29 mg/dL (0.60-1.20); Potassium, Blood 4.7 mmol/L (3.5-5.5)
--- NOTE | 2020-12-09 09:28 | NUR ---
CHARTED BY MILL CONTROL OPERATOR STUDENT.
--- NOTE | 2020-12-09 19:25 | NUR ---
Shift Summary A/Ox4, pleasant and cooperative with care. Medicated x 1 for 5/10 pain with good effect. Wound vac cannister changed, 300 mL SS drainage. Suction remains at 120 mmHg. Family had brought in some [employer] and [employer] M[employer]M's for patient this afternoon. Counseled about dietary restrictions d/t diabetes. Called Margaret (Salesperson Furniture) to discuss diet and menu alternatives. Had patient demonstrate SC insulin administration, education provided. Possible discharge tomorrow. Report given to oncoming RN.
--- NOTE | 2020-12-10 04:02 | NUR ---
SHIFT SUMMARY: PT IS ALERT AND ORIENTED. PT IS CALM AND COOPERATIVE WITH CARE. PT CALLS APPROPRIATELY. PT IS UP INDEPENDENTLY IN THE ROOM. WND VAC DRESSING INTACT AND DRAINING. PT REPORTS PAIN ON ONE OCCASION, GAVE PRN NORCO, PT REPORTED ACCEPTABLE PAIN RELIEF. PT DENIES NAUSEA, VOMITING, AND SOB. PT SLEPT MUCH OF THE NIGHT WHEN NOT DISTURBED. PLAN FOR DISCHARGE TODAY. NO ACUTE CHANGES OR COMPLICATIONS THIS SHIFT. WILL CONTINUE TO MONITOR.
[2020-12-10 06:04] LABS: BASOPHILS ABSOLUTE AUTO 0.04 K/mm3 (0.00-0.23); BASOPHILS PERCENT AUTO 1 % (0-2); EOSINOPHILS ABSOLUTE AUTO 0.28 K/mm3 (0.00-0.68); EOSINOPHILS PERCENT AUTO 4 % (0-6); Hematocrit 22.9 % (37.0-53.0); Hemoglobin 7.4 g/dL (13.5-17.5); IMMATURE GRAN ABSOLUTE AUTO 0.06 K/mm3 (0.00-0.10); IMMATURE GRAN PERCENT AUTO 1 % (0-1); LYMPHOCYTES PERCENT AUTO 21 % (21-46); MONOCYTES ABSOLUTE AUTO 0.87 K/mm3 (0.16-1.47); MONOCYTES PERCENT AUTO 12 % (4-13); Mean Corpuscular HGB 29.2 pg (26.0-34.0); Mean Corpuscular HGB Conc 32.3 g/dL (31.5-36.5); Mean Corpuscular Volume 91 fL (80-100); Mean Platelet Volume 8.5 fL (9.1-12.4); NEUTROPHILS ABSOLUTE AUTO 4.61 K/mm3 (1.96-9.15); NEUTROPHILS PERCENT AUTO 62 % (41-73); Platelet Count 829 K/mm3 (150-400); RDW Coefficient Variation 12.1 % (11.7-14.2); RDW Standard Deviation 40.8 fL (35.1-46.3); Red Blood Cell Count 2.53 M/mm3 (4.30-5.90); White Blood Cell Count 7.46 K/mm3 (4.00-11.30)
[2020-12-10 06:22] LABS: Bun/Creatinine Ratio 16.5 (12.0-20.0); Calcium, Blood 9.9 mg/dL (8.5-10.1); Creatinine, Blood 2.54 mg/dL (0.60-1.20); Potassium, Blood 4.4 mmol/L (3.5-5.5)
[2020-12-10] MEDS ORDERED: CEFAZOLIN SODIUM1 G1 IV (13:02)
[2020-12-10] MEDS ORDERED: CLIN300 PO (13:03)
[2020-12-10] MEDS ORDERED: HYDACE10B PO (13:03)
[2020-12-10] MEDS ORDERED: INSULANPEN SC (13:04)
[2020-12-10] MEDS ORDERED: VISBIOME PROBI1 EACH PO (13:06)
[2020-12-10] MEDS ORDERED: HUMALOG KW100 UNIT/1 SC (13:06)
[2020-12-10] MEDS ORDERED: ALCOHOL PREP P1 EACH UD (13:07)
[2020-12-10] MEDS ORDERED: ONETOUCH VERIO1 EAC2 UD (13:09)
[2020-12-10] MEDS ORDERED: [UNRECOGNIZED DRUG - SUPPLY] UD (13:11)
[2020-12-10] MEDS ORDERED: [UNRECOGNIZED DRUG - SUPPLY] UD (13:12)
[2020-12-10] MEDS ORDERED: [UNRECOGNIZED DRUG - SUPPLY] UD (13:13)
--- NOTE | 2020-12-10 14:54 | NUR ---
Discharge Summary A/Ox4, cooperative with care. Up x 1 SBA, uses urinal at bedside. Reviewed discharge paperwork with patient. No questions at this time, copy of d/c paperwork provided. Patient was anxious about NPWT dressing change d/t previous painful experience. Medicated for pain prior to procedure with good effect. Dressing change was successfully completed. Hospital wound vac given back to Nursing Commercial Underwriter Gilbert. Patient discharging to home with HH. D/C meds reviewed with patient and faxed to [facility]. Insulin tips called in to [facility] for fill per T.O. from Dr. Denis. Escorted via w/c by RECEPTION SPECIALIST. Personal belongings sent home. Transport by family with personal vehicle.
== END 2020-12-10 14:47 | disposition home health service (06) | DRG 853 ==
LOC: ER 16:46 → MEDS 16:47 → ER 21:36 → MEDS 21:36
PROVIDERS: Hospitalist; Internal Medicine; Orthopaedic Surgery; Physician Assistant; Student in an Organized Health Care Education/Training Program; ADMIT Internal Medicine
PROC: 0KBT0ZZ Excision of Left Lower Leg Muscle, Open Approach (ICD-10-PCS; 2020-12-02)
PROC: 30233N1 Transfusion of Nonautologous Red Blood Cells into Peripheral Vein, Percutaneous Approach (ICD-10-PCS; 2020-12-02)
PROC: 0HDLXZZ Extraction of Left Lower Leg Skin, External Approach (ICD-10-PCS; principal; 2020-12-02 13:30)
PROC: 0LBM0ZZ Excision of Left Upper Leg Tendon, Open Approach (ICD-10-PCS; 2020-12-04)
PROC: 0KBP0ZZ Excision of Left Hip Muscle, Open Approach (ICD-10-PCS; 2020-12-04)
PROC: 0S9D3ZX Drainage of Left Knee Joint, Percutaneous Approach, Diagnostic (ICD-10-PCS; 2020-12-04)
DX: A40.9 Streptococcal sepsis, unspecified (principal); N17.0 Acute kidney failure with tubular necrosis; D62 Acute posthemorrhagic anemia; E87.1 Hypo-osmolality and hyponatremia; L02.416 Cutaneous abscess of left lower limb; L03.116 Cellulitis of left lower limb; E11.65 Type 2 diabetes mellitus with hyperglycemia; E78.5 Hyperlipidemia, unspecified; E86.0 Dehydration; I10 Essential (primary) hypertension; R65.20 Severe sepsis without septic shock
CPT/HCPCS: 0241U; 36415; 36430; 73700; 73701; 76770; 80048; 80053; 80069; 80202; 81003; 81015; 82550; 82728; 82947; 83036; 83540; 83550; 83605; 85007; 85014; 85018; 85025; 85027; 85651; 86140; 86850; 86900; 86901; 86923; 87040; 87070; 87075; 87077; 87147; 87186; 87205; 89051; 93005; 93010; 96365-59; 96367; 99285-25; A9270; C1751; J0690; J0692; J1100; J1170; J1650; J1885; J2250; J2370; J2405; J2543; J2704; J2765; J3010; J3370; J7030; J7040; J7050; J7120; P9016; P9046; Q9967

== ENCOUNTER → 2020-12-13 | Outpatient (CLI) | payer OTHER ==
[~2020-12-13] MED LIST changes: +ALCOHOL PREP P1 EACH UD; +ATOR40TA PO; +Aspir 8181 MG PO; +BUSP10 PO; +CEFAZOLIN SODIUM1 G1 IV; +CLIN300 PO; +CLONAZEPAM1 MG PO; +DICL75ER PO; +EFFEXOR XR150 MG PO; +FENO160 PO; +GLIP10ER PO; +GLUCOPHAGE1000 M4 PO; +HUMALOG KW100 UNIT/1 SC; +HYDACE10B PO; +INSULANPEN SC; +LISI20 PO; +ONETOUCH VERIO1 EAC2 UD; +OXYC5 PO; +TIZA4 PO; +VENL75ER PO; +VENLAFAXINE HC225 MG PO; +VISBIOME PROBI1 EACH PO; +[UNRECOGNIZED DRUG - SUPPLY] UD; +[UNRECOGNIZED DRUG - SUPPLY] UD; +[UNRECOGNIZED DRUG - SUPPLY] UD
[2020-12-13 17:40] LABS: BASOPHILS ABSOLUTE AUTO 0.06 K/mm3 (0.00-0.23); BASOPHILS PERCENT AUTO 1 % (0-2); EOSINOPHILS ABSOLUTE AUTO 0.23 K/mm3 (0.00-0.68); EOSINOPHILS PERCENT AUTO 3 % (0-6); Hematocrit 20.9 % (37.0-53.0); Hemoglobin 6.5 g/dL (13.5-17.5); IMMATURE GRAN ABSOLUTE AUTO 0.05 K/mm3 (0.00-0.10); IMMATURE GRAN PERCENT AUTO 1 % (0-1); LYMPHOCYTES ABSOLUTE AUTO 1.58 K/mm3 (0.84-5.20); LYMPHOCYTES PERCENT AUTO 24 % (21-46); MONOCYTES ABSOLUTE AUTO 0.62 K/mm3 (0.16-1.47); MONOCYTES PERCENT AUTO 9 % (4-13); Mean Corpuscular HGB 28.9 pg (26.0-34.0); Mean Corpuscular HGB Conc 31.1 g/dL (31.5-36.5); Mean Corpuscular Volume 93 fL (80-100); Mean Platelet Volume 8.6 fL (9.1-12.4); NEUTROPHILS ABSOLUTE AUTO 4.14 K/mm3 (1.96-9.15); NEUTROPHILS PERCENT AUTO 62 % (41-73); Platelet Count 936 K/mm3 (150-400); RDW Standard Deviation 40.6 fL (35.1-46.3); Red Blood Cell Count 2.25 M/mm3 (4.30-5.90); White Blood Cell Count 6.68 K/mm3 (4.00-11.30)
[2020-12-13 20:45] LABS: Albumin, Blood 2.2 g/dL (3.4-5.0); Albumin/Globulin Ratio 0.4 (0.8-1.8); Bilirubin, Total 0.2 mg/dL (0.1-1.0); Bun/Creatinine Ratio 13.6 (12.0-20.0); Creatinine, Blood 1.62 mg/dL (0.60-1.20); Globulin, Blood 5.4 g/dL (2.2-4.0); Potassium, Blood 4.4 mmol/L (3.5-5.5); Total Protein, Blood 7.6 g/dL (6.4-8.2)
== END | disposition home or self-care (01) ==
LOC: PLD 15:00 → LAB SHORT 15:00
PROVIDERS: Internal Medicine Nephrology
DX: R79.89 Other specified abnormal findings of blood chemistry (principal)
CPT/HCPCS: 80053; 85025

== ENCOUNTER 2020-12-14 10:53 | Emergency (ER) | payer OTHER ==
[~2020-12-14] VITALS: Ht 177.8 cm; Wt 113.4 kg
[2020-12-14 11:22] LABS: BASOPHILS ABSOLUTE AUTO 0.06 K/mm3 (0.00-0.23); BASOPHILS PERCENT AUTO 1 % (0-2); EOSINOPHILS ABSOLUTE AUTO 0.23 K/mm3 (0.00-0.68); EOSINOPHILS PERCENT AUTO 4 % (0-6); Hematocrit 25.3 % (37.0-53.0); Hemoglobin 8.3 g/dL (13.5-17.5); IMMATURE GRAN ABSOLUTE AUTO 0.06 K/mm3 (0.00-0.10); IMMATURE GRAN PERCENT AUTO 1 % (0-1); LYMPHOCYTES ABSOLUTE AUTO 1.52 K/mm3 (0.84-5.20); LYMPHOCYTES PERCENT AUTO 29 % (21-46); MONOCYTES ABSOLUTE AUTO 0.46 K/mm3 (0.16-1.47); MONOCYTES PERCENT AUTO 9 % (4-13); Mean Corpuscular HGB 29.5 pg (26.0-34.0); Mean Corpuscular HGB Conc 32.8 g/dL (31.5-36.5); Mean Corpuscular Volume 90 fL (80-100); Mean Platelet Volume 8.3 fL (9.1-12.4); NEUTROPHILS ABSOLUTE AUTO 3.01 K/mm3 (1.96-9.15); NEUTROPHILS PERCENT AUTO 56 % (41-73); Platelet Count 817 K/mm3 (150-400); RDW Coefficient Variation 11.9 % (11.7-14.2); RDW Standard Deviation 39.2 fL (35.1-46.3); Red Blood Cell Count 2.81 M/mm3 (4.30-5.90); White Blood Cell Count 5.34 K/mm3 (4.00-11.30)
[2020-12-14 11:39] LABS: Alanine Aminotransfer (ALT/SGP 14 U/L (12-78); Albumin, Blood 2.4 g/dL (3.4-5.0); Albumin/Globulin Ratio 0.4 (0.8-1.8); Alk Phos 99 U/L (50-136); Anion Gap 7 mmol/L (6-16); Aspartate Aminotrans (AST/SGOT 13 U/L (12-37); Bilirubin, Total 0.1 mg/dL (0.1-1.0); Blood Urea Nitrogen 22 mg/dL (8-24); Bun/Creatinine Ratio 16.2 (12.0-20.0); CO2, Blood 24 mmol/L (21-32); Calcium, Blood 9.5 mg/dL (8.5-10.1); Chloride, Blood 108 mmol/L (98-108); Creatinine, Blood 1.36 mg/dL (0.60-1.20); Globulin, Blood 5.7 g/dL (2.2-4.0); Glomerular Filtration Rate >60 (60-); Glucose, Blood 274 mg/dL (70-99); Potassium, Blood 4.6 mmol/L (3.5-5.5); Sodium, Blood 139 mmol/L (136-145); Total Protein, Blood 8.1 g/dL (6.4-8.2)
== END 2020-12-14 11:58 | disposition home or self-care (01) ==
LOC: ER 10:53
PROVIDERS: Physician Assistant
DX: D64.9 Anemia, unspecified (principal); E11.9 Type 2 diabetes mellitus without complications; I10 Essential (primary) hypertension; E78.5 Hyperlipidemia, unspecified; Z79.4 Long term (current) use of insulin; Z88.0 Allergy status to penicillin; Z79.82 Long term (current) use of aspirin; Z79.899 Other long term (current) drug therapy
CPT/HCPCS: 80053; 85025; 86850; 86900; 86901; 93005; 93010; 99283-25

== ENCOUNTER 2022-06-19 08:48 | Emergency (ER) | payer OTHER ==
[~2022-06-19] VITALS: Ht 177.8 cm; Wt 120.2 kg
[2022-06-19 09:25] LABS: BASOPHILS ABSOLUTE AUTO 0.02 K/mm3 (0.00-0.23); BASOPHILS PERCENT AUTO 0 % (0-2); EOSINOPHILS ABSOLUTE AUTO 0.36 K/mm3 (0.00-0.68); EOSINOPHILS PERCENT AUTO 4 % (0-6); Hematocrit 41.6 % (37.0-53.0); Hemoglobin 13.6 g/dL (13.5-17.5); IMMATURE GRAN ABSOLUTE AUTO 0.02 K/mm3 (0.00-0.10); IMMATURE GRAN PERCENT AUTO 0 % (0-1); LYMPHOCYTES ABSOLUTE AUTO 1.49 K/mm3 (0.84-5.20); LYMPHOCYTES PERCENT AUTO 18 % (21-46); MONOCYTES ABSOLUTE AUTO 0.69 K/mm3 (0.16-1.47); MONOCYTES PERCENT AUTO 8 % (4-13); Mean Corpuscular HGB 29.4 pg (26.0-34.0); Mean Corpuscular HGB Conc 32.7 g/dL (31.5-36.5); Mean Corpuscular Volume 90 fL (80-100); Mean Platelet Volume 9.7 fL (9.1-12.4); NEUTROPHILS ABSOLUTE AUTO 5.91 K/mm3 (1.96-9.15); NEUTROPHILS PERCENT AUTO 70 % (41-73); Platelet Count 244 K/mm3 (150-400); RDW Coefficient Variation 12.7 % (11.7-14.2); RDW Standard Deviation 41.8 fL (35.1-46.3); Red Blood Cell Count 4.62 M/mm3 (4.30-5.90); White Blood Cell Count 8.49 K/mm3 (4.00-11.30)
[2022-06-19 09:42] LABS: Albumin, Blood 4.2 g/dL (3.4-5.0); Albumin/Globulin Ratio 1.3 (0.8-1.8); Bilirubin, Total 0.5 mg/dL (0.1-1.0); Bun/Creatinine Ratio 18.6 (12.0-20.0); Calcium, Blood 9.6 mg/dL (8.5-10.1); Creatinine, Blood 0.97 mg/dL (0.60-1.20); Globulin, Blood 3.2 g/dL (2.2-4.0); Potassium, Blood 4.4 mmol/L (3.5-5.5); Total Protein, Blood 7.4 g/dL (6.4-8.2)
[2022-06-19] MEDS ORDERED: INSULANI (09:57)
[2022-06-19] MEDS ORDERED: LIDO700A20 TOP (10:09)
== END 2022-06-19 10:30 | disposition home or self-care (01) ==
LOC: ER 08:48
PROVIDERS: Student in an Organized Health Care Education/Training Program
DX: R07.89 Other chest pain (principal); E11.9 Type 2 diabetes mellitus without complications; I10 Essential (primary) hypertension; E78.5 Hyperlipidemia, unspecified; Z88.0 Allergy status to penicillin; Z79.899 Other long term (current) drug therapy; Z79.4 Long term (current) use of insulin
CPT/HCPCS: 36415; 71046; 80053; 84484; 85025; 93005; 93010

== ENCOUNTER → 2024-07-01 | Outpatient (CLI) | payer OTHER ==
[~2024-07-01] MED LIST changes: +INSULANI; +LIDO700A20 TOP
[2024-07-01 16:21] LABS: BASOPHILS ABSOLUTE AUTO 0.04 K/mm3 (0.00-0.23); BASOPHILS PERCENT AUTO 1 % (0-2); EOSINOPHILS ABSOLUTE AUTO 0.27 K/mm3 (0.00-0.68); EOSINOPHILS PERCENT AUTO 5 % (0-6); Hematocrit 48.1 % (37.0-53.0); Hemoglobin 15.8 g/dL (13.5-17.5); IMMATURE GRAN ABSOLUTE AUTO 0.01 K/mm3 (0.00-0.10); IMMATURE GRAN PERCENT AUTO 0 % (0-1); LYMPHOCYTES ABSOLUTE AUTO 1.94 K/mm3 (0.84-5.20); LYMPHOCYTES PERCENT AUTO 32 % (21-46); MONOCYTES ABSOLUTE AUTO 0.46 K/mm3 (0.16-1.47); MONOCYTES PERCENT AUTO 8 % (4-13); Mean Corpuscular HGB 29.5 pg (26.0-34.0); Mean Corpuscular HGB Conc 32.8 g/dL (31.5-36.5); Mean Corpuscular Volume 90 fL (80-100); Mean Platelet Volume 9.8 fL (9.1-12.4); NEUTROPHILS ABSOLUTE AUTO 3.34 K/mm3 (1.96-9.15); NEUTROPHILS PERCENT AUTO 55 % (41-73); Platelet Count 332 K/mm3 (150-400); RDW Coefficient Variation 12.4 % (11.7-14.2); RDW Standard Deviation 40.7 fL (35.1-46.3); Red Blood Cell Count 5.36 M/mm3 (4.30-5.90); White Blood Cell Count 6.06 K/mm3 (4.00-11.30)
[2024-07-01 17:25] LABS: Alanine Aminotransfer (ALT/SGP 60 U/L (12-78); Albumin, Blood 4.3 g/dL (3.4-5.0); Albumin/Globulin Ratio 1.1 (0.8-1.8); Alk Phos 75 U/L (50-136); Anion Gap 6 mmol/L (3-11); Aspartate Aminotrans (AST/SGOT 44 U/L (12-37); Bilirubin, Total 0.4 mg/dL (0.1-1.0); Blood Urea Nitrogen 15 mg/dL (8-24); CHOL/HDL RATIO 2.2; CO2, Blood 31 mmol/L (21-32); Calcium, Blood 10.2 mg/dL (8.5-10.1); Chloride, Blood 104 mmol/L (98-108); Cholesterol 100 mg/dL (50-200); Globulin, Blood 3.8 g/dL (2.2-4.0); Glomerular Filtration Rate 93 (60-); Glucose, Blood 150 mg/dL (70-99); HDL Cholesterol 45 mg/dL (>39); LDL/HDL RATIO 0.8; Low Density Lipoprotein Chol 35 mg/dL (0-110); Potassium, Blood 4.4 mmol/L (3.5-5.5); Sodium, Blood 137 mmol/L (136-145); Total Protein, Blood 8.1 g/dL (6.4-8.2); Triglycerides 101 mg/dL (30-160); Very Low Density Lipoprot Chol 20 mg/dL (6-32)
[2024-07-01 17:58] LABS: Microalb/Creat Ratio UR, Rand Unable to Calculate mg/g (0.000-30.000); Microalbumin, Random Urine <5.000 mg/L (0.000-20.000)
[2024-07-05 14:02] LABS: TESTOSTERONE, FREE BY DIALYSIS 46.7 pg/mL (47.0-244.0); TESTOSTERONE, TOTAL MASS SPEC 300.3 ng/dL (300.0-890.0)
== END ==
LOC: LAB 12:15 → LAB SHORT 12:15
PROVIDERS: Family Medicine
DX: E11.9 Type 2 diabetes mellitus without complications (principal); R53.82 Chronic fatigue, unspecified; Z79.899 Other long term (current) drug therapy
CPT/HCPCS: 80053; 80061; 82043; 82306; 82570; 84402; 84403; 84443; 85025

== ENCOUNTER 2024-08-11 17:39 | Emergency (ER) | payer OTHER ==
[~2024-08-11] VITALS: Ht 177.8 cm; Wt 102.1 kg
[2024-08-11 18:28] VITALS: BP 136/105
[2024-08-11] MEDS ORDERED: Glycerin Adult Supp 1 EA PR ONE (18:35)
== END 2024-08-11 19:39 | disposition home or self-care (01) ==
LOC: ER 17:39
DX: K59.00 Constipation, unspecified (principal); E11.9 Type 2 diabetes mellitus without complications; I10 Essential (primary) hypertension; E78.5 Hyperlipidemia, unspecified; Z88.0 Allergy status to penicillin; Z79.4 Long term (current) use of insulin; Z79.899 Other long term (current) drug therapy
CPT/HCPCS: 99282; A9270